=== PATIENT | male | born 1960 | race Caucasian/White ===

== ENCOUNTER → 2024-03-18 16:40 | Outpatient (REF) | payer OTHER, SELFPAY | LOC: HWRAD 16:40 | PROVIDERS: ATTENDING PHYSICIAN Physician Assistant Medical | DX: M54.6 Pain in thoracic spine (principal) | CPT/HCPCS: 71111; 72072 ==

== ENCOUNTER → 2024-05-18 09:15 | Outpatient (REF) | payer OTHER, SELFPAY ==
[2024-05-18 09:44] VITALS: BP 156/87; BP_SYST 57
[2024-05-18 09:48] LABS: % Basophils 0.2 % (0-2); % Eosinophils 2.4 % (0-6); % Immature Granulocytes 0.2 % (0-0.5); % Lymphocytes 38.1 % (20.5-51.1); % Monocytes 8.8 % (1.7-9.3); % Neutrophils 50.3 % (42.2-75.2); Absolute Eosinophils 0.1 10^3/uL (0-0.7); Absolute Lymphocytes 1.6 10^3/uL (1.2-3.4); Absolute Monocytes 0.4 10^3/uL (0.1-0.6); Absolute Neutrophils 2.1 10^3/uL (1.4-6.5); Hematocrit 38.5 % (39.0-52.0); Hemoglobin 13.1 g/dL (13.0-18.0); Mean Corpuscular Volume 93.9 fL (80.0-94.0); Mean Platelet Volume 10.2 fL (7.4-10.4); Nucleated Red Blood Cells % 0 % (-); Platelet Count 220 10^3/uL (130-400); Red Cell Dist. Width 12.5 % (11.5-14.5); White Blood Cell Count 4.2 10^3/uL (4.8-10.8)
[2024-05-18] MEDS: NSS (PRESERVATIVE FREE) 0.25 ML IV (10:11)
[2024-05-18] MEDS: ATIVAN 0.5 MG IV (10:11)
[2024-05-18 10:14] LABS: INR 1.18; PT 14.8 Sec (11.4-14.6)
[2024-05-18 10:55] VITALS: BP 145/85; BP_SYST 67
[2024-05-18 11:00] VITALS: BP 143/98; BP_SYST 62
[2024-05-18 11:05] VITALS: BP 137/90; BP_SYST 65
[2024-05-18 11:10] VITALS: BP 149/82; BP_SYST 68
== END ==
LOC: RADI 09:15
PROVIDERS: ATTENDING PHYSICIAN Internal Medicine Hematology & Oncology; FAMILY PHYSICIAN Physician Assistant Medical
DX: C90.00 Multiple myeloma not having achieved remission (principal); D69.6 Thrombocytopenia, unspecified
CPT/HCPCS: 88305; 88311; 88312; 36415; 38222; 77012; 85025; 85610; 88313

== ENCOUNTER → 2024-06-22 10:04 | Outpatient (REF) | payer OTHER, SELFPAY | LOC: HWRAD 10:04 | PROVIDERS: ATTENDING PHYSICIAN Nurse Practitioner Primary Care; FAMILY PHYSICIAN Physician Assistant Medical | DX: C90.00 Multiple myeloma not having achieved remission (principal) | CPT/HCPCS: 76536 ==

== ENCOUNTER 2024-08-15 07:38 | Inpatient (IN) | payer OTHER, SELFPAY ==
[2024-08-14 21:56] VITALS: BP 155/94
[2024-08-14 22:18] LABS: % Basophils 0.4 % (0-2); % Eosinophils 3.2 % (0-6); % Immature Granulocytes 0.4 % (0-0.5); % Lymphocytes 15.2 % (20.5-51.1); % Monocytes 11.6 % (1.7-9.3); % Neutrophils 69.2 % (42.2-75.2); Absolute Eosinophils 0.2 10^3/uL (0-0.7); Absolute Lymphocytes 1.1 10^3/uL (1.2-3.4); Absolute Monocytes 0.9 10^3/uL (0.1-0.6); Absolute Neutrophils 5.1 10^3/uL (1.4-6.5); Hematocrit 39.4 % (39.0-52.0); Hemoglobin 12.8 g/dL (13.0-18.0); Mean Corp Hgb Conc. 32.5 g/dL (33.0-37.0); Mean Corpuscular Hgb 30.3 pg (27.0-31.0); Mean Corpuscular Volume 93.4 fL (80.0-94.0); Mean Platelet Volume 10.1 fL (7.4-10.4); Nucleated Red Blood Cells % 0 % (-); Platelet Count 200 10^3/uL (130-400); Red Blood Cell Count 4.22 10^6/uL (4.70-6.10); Red Cell Dist. Width 13.2 % (11.5-14.5); White Blood Cell Count 7.4 10^3/uL (4.8-10.8)
[2024-08-14 22:42] LABS: ALT (SGPT) 29 U/L (0-50); AST (SGOT) 19 U/L (17-59); Albumin 3.8 g/dl (3.5-5.0); Alkaline Phosphatase 67 U/L (38-126); Blood Urea Nitrogen 21 mg/dl (9-20); Calcium 8.7 mg/dl (8.4-10.2); Carbon Dioxide 31 mmol/L (22-30); Chloride 100 mmol/L (98-107); Glucose 107 mg/dl (70-99); Potassium 4.8 mmol/L (3.5-5.1); Sodium 137 mmol/L (135-145); Total Bilirubin 0.5 mg/dl (0.2-1.3); eGFR > 60.00
[2024-08-14 22:45] LABS: Troponin I < 0.012 ng/ml
[2024-08-14 23:54] VITALS: BMI 34.6
[2024-08-15] VITALS (11 sets, daily range): BP systolic 115–142; BP diastolic 54–72; BMI 33.6
[2024-08-15] MEDS: ZOFRAN 4 MG IV (01:54)
[2024-08-15] MEDS: DILAUDID 0.5 MG IV (01:55)
--- NOTE | 2024-08-15 02:10 | ED.GENMED ---
History of Present Illness
General
Chief Complaint: Chest Pain
Source: patient
Exam Limitations: none
Time Seen by Provider: 08/15/24 01:15
History of Present Illness
History of Present Illness:
This is a 64 year old male that comes in with c/o left sided lateral chest pain. States that tonight he was just sitting in his chair watching TV when he started with this sharp left side chest pain. States that this started bout 9:30pm States that
he does have increased pain with deep breathing. Denies any falls or injury. states that his Oral chemotherapy medication can cause Pulmonary embolism. States that he does feel SOB. Denies any fever, chills, abd pain, nausea, vomiting,
diarrhea, headache, dizziness, urinary burning.
Past History
Past History
ED Past Medical History: Cancer (Multiple Myeloma); Negative Asthma, HTN, Hypercholesterolemia or NIDDM
ED Past Surgical History: None
Social History
Tobacco: Non-smoker
Alcohol: None
Personal:
Living: with family
Family History
Family History: Negative Early CAD
Review of Systems
Review of Systems
All Other Systems: ROS reviewed and negative except as documented in HPI and ROS
Constitutional: Reports no symptoms; Denies fever or chills
EENT: Reports no symptoms
Respiratory: Reports trouble breathing; Denies cough
Cardiac: Reports chest pain (Left lateral chest)
ABD/GI: Reports no symptoms; Denies abdominal pain, nausea, vomiting or diarrhea
: Reports no symptoms; Denies dysuria, frequency or urgency
Musculoskeletal: Reports no symptoms
Skin: Reports no symptoms
Neurological: Reports no symptoms; Denies dizzy or headache
Psychiatric: Reports no symptoms
Phy Exam
General Physical Exam
General Presentation: mild distress
General age: appears stated age
General Skin: warm and dry
General Habitus: normal
General Mental: alert
General Hydration: appears well hydrated
ENT Exam
ENT Exam: TM's normal, pharynx normal and neck supple
Eye Exam
Eye Exam: EOMI
Cardiovascular Exam
Cardiovascular Exam: regular rate/rhythm and normal peripheral pulses
Pulmonary Exam
Pulmonary Exam: lungs clear, no respiratory distress, no rales, chest non tender, no crackles, no rhonchi, no wheezing, no cough and other (NO discomfort with palpation over the left chest wall)
Gastrointestinal Exam
Gastrointestinal Exam: normal bowel sounds, non tender, soft, no organomegaly, no pulsatile mass and non distended
Musculoskeletal Exam
Musculoskeletal Exam: full ROM and no edema
Skin Exam
Skin Exam: normal color, warm/dry, no rash and no petechia
Psychiatric Exam
Psychiatric Exam: normal mood/affect
Scores
Heart Score for Chest Pain Patients
STEMI patient?: No
History: Slightly or Non-Suspicious
ECG: Normal
Age: >45 - <65 years
Risk Factors: No Risk Factors
Troponin: </= Normal Limit
Heart Score for Chest Pain Patients: 1
Heart Score Risk: 2.5% MACE over next 6 weeks
Course
Orders/Labs/Results
Orders:
Orders
08/14/24 21:55
Electrocardiogram (*1) Urgent
Reason for Study: Chest Pain
EKG- Treatment ONCE
Pulse Ox/spot Check [RESP] Urgent
Quantity: 1
Special Instructions: ON ROOM AIR
08/14/24 22:07
Complete Blood Count/With Diff Urgent
Comprehensive Metabolic Panel Urgent
Troponin I Urgent
08/15/24 01:43
CR Chest - 2 Views Urgent
Comment:
Reason For Exam: Left chest pain. SOB
08/15/24 01:50
Ondansetron Injectable [Zofran] 4 mg .ROUTE .STK-MED ONE
08/15/24 01:51
HYDROmorphone [Dilaudid] 0.5 mg .ROUTE .STK-MED ONE
08/15/24 01:54
Ondansetron Injectable [Zofran] 4 mg IV NOW STA
08/15/24 01:55
HYDROmorphone [Dilaudid] 0.5 mg IV NOW STA
08/15/24 01:58
D-Dimer Urgent
08/15/24 03:17
CT Chest Pe Study Urgent
Comment:
Reason For Exam: Left sided chest pain, Elevated D-dimer
Abnormal Lab Results
08/14/24 08/15/24
22:07 01:58
RBC 4.22 L 10^6/uL
(4.70-6.10)
Hgb 12.8 L g/dL
(13.0-18.0)
MCHC 32.5 L g/dL
(33.0-37.0)
Absolute Lymphs (auto) 1.1 L 10^3/uL
(1.2-3.4)
Absolute Monos (auto) 0.9 H 10^3/uL
(0.1-0.6)
Lymphocytes % 15.2 L %
(20.5-51.1)
Monocytes % 11.6 H %
(1.7-9.3)
D-Dimer 2.07 H ug/mlFEU
(0.00-0.50)
Carbon Dioxide 31 H mmol/L
(22-30)
BUN 21 H mg/dl
(9-20)
Glucose 107 H mg/dl
(70-99)
08/14/24 22:07
08/14/24 22:07
Hgb slightly ow. Slight Dehydration. Glucose nonfasting. Troponin <0.012
D-dimer 2.07
Vital Signs
Initial and Last Documented VS:
Initial Vital Signs
Temp Pulse Resp BP Pulse Ox
99.1 F 66 20 155/94 97
08/14/24 21:56 08/14/24 21:56 08/14/24 21:56 08/14/24 21:56 08/14/24 21:56
Last Documented Vital Signs
Temp Pulse Resp BP Pulse Ox
99.1 F 63 14 123/67 97
08/14/24 21:56 08/15/24 03:30 08/15/24 03:30 08/15/24 03:00 08/15/24 03:30
MDM/Problems Addressed
Differential Diagnosis Includes:
PE, PNA, Coronary syndrome
MDM/Problems Addressed:
This is a 64 year old male that comes in with c/o left later chest pain. States that he does have pain with deep breathing. States that the pain just came on all of a sudden and was sharp.
Will get labs, Chest x-ray ECG and medicate for pain.
Back into see patient. Explained that his D-dimer is elevated. Will get CT chest to r/o PE.
Into see patient and . Explained that he does have Bilateral pulmonary embolism. There may also be a little right heart strain. Will place patient on Heparin and admit. Hospitalist notified.
Chronic conditions affecting care: Cancer
Acute Exacerbation and/or Progression of Chronic Illness: Cancer
*Radiology
Radiology exam reviewed: radiology read reviewed (CT night hawk- Artifact limits overall assessment. Within this limiation, there are acute pulmonary emboli involving left upper lobe segmental and subsegmental branches as well as within the right
lower lobe, series 404, images 93 and 137 for example. Straightening of the IV septum which could ), all reviewed NAD by ED Provider (CT cont- could reflect a mild degree of right heart strain, can her echocardiogram. Dependent atelectasis. No
pneumothorax or pleural effusion. Focal atelectasis versus infarct involving the lingula on series 400. No aortic dissection or aneurysm. Mild cardiomegaly with coronary artery disease. ) and other (CT cont- Hepatic steatosis Age indeterminate
compression fractures of T4 and T7, new from previous CT of 2020. Consider MRI if clinically indicated. )
*Pulse Oximetry
Patient hypoxic: no
*EKG
Interpreted by ED Provider?: Yes
Heart Rate: 58
Rate: bradycardiac
Rhythm: sinus
[place]: normal axis
Interval: normal interval
QRS Pattern: normal QRS
Ischemia: no ischemia
*Control Valve Mechanic Interpretation
Rate: normal
Heart Rate: 63
Rhythm: sinus
*Critical Care Note
Total Time (30-74mins, 75-104mins- exclusive of procedures): Not Applicable
ED Attending Note
-
Portions of this chart may have been created with voice recognition software.� Occasional wrong word or��sound alike� substitutions may have occurred due to the inherent limitations of voice recognition software.
Discharge Plan
Departure
Patient Disposition: Admit
Date of Disposition: 08/15/24
Time of Disposition: 04:40
Admit to: Telemetry
Presentation/result/management discussed w/ accepting MD/DO: Hospitalist
Patient with high blood pressure during this ER visit?: No
Condition: Good
Covid-19: Not Applicable
Discharge Problem:
Bilateral pulmonary embolism
Prescriptions:
No Action
ibuprofen [Advil] 200 mg Tablet
200 mg PO Q6H PRN (Reason: pain)
guaifenesin [Mucinex] 600 mg Tablet Extended Release 12hr
1,200 mg PO Q12H
Referrals:
Colette Hernandez PA-C [Family Provider] -
Interventions
Interventions:
*Risk Screen - Suicide Last Done: 08/14/24 21:56
*General Assessment Last Done: 08/14/24 21:56
*Neglect/Abuse Screening Last Done: 08/14/24 21:56
ED- Fall Risk Assessment Last Done: 08/14/24 23:54
*ED COVID-19 Vaccine History Last Done: 08/14/24 23:54
ED- Cardiac Assessment Last Done: 08/14/24 23:54
Discharge Date and Time
Print Language: MARSHALLESE
[2024-08-15 02:26] LABS: D-Dimer 2.07 ug/mlFEU (0.00-0.50)
[2024-08-15] MEDS: HEPARIN 9800 UNITS IV ×2 (06:07→13:18)
[2024-08-15] MEDS: HEPARIN 25000 UNITS/250 ML IV ×2 (06:08→17:46)
--- NOTE | 2024-08-15 07:40 | HPS.HSE ---
Family Physician
-
Family Physician: Colette Hernandez
Chief Complaint
-
Chest pain
History of Present Illness
This is a 64-year-old male with past medical history that is notable mostly significant for a recent diagnosis of multiple myeloma for which he has been on treatment (Velcade, daratumumab and Revlimid) for the last 6 weeks presents to the emergency
department with left-sided chest pain.
Patient and family reported that for the last 1 week he has had dyspnea on exertion. A more precisely noted that the patient gets easily winded after a few steps. He did not have any chest pain at that time. He had no lower extremity swelling.
He denies any nausea vomiting or diaphoresis. Today at around 9 PM patient noted very sharp 7 out of 10 left-sided chest pain that was radiating. It was worse with inspiration. He denied any leg swelling.
On arrival in the emergency department the patient was afebrile, hemodynamically stable with a blood pressure of 114/72 with a pulse of 51. He was satting 96% on room air. ECG shows sinus bradycardia at a rate of [address] or T wave
changes. Troponin was negative. CBC was unremarkable. Chemistries were also unremarkable. D-dimer was elevated. Patient had a CT PE study showing acute pulmonary emboli involving left upper lobe segmental and subsegmental branches as well as
within the right lower lobe. There is some straightening of the IV septum which reflect mild degree of right heart strain.
Medical History
Past Medical History
Past Medical History: Reports Other
Additional Past Medical History:
Multiple Myeloma
Past Surgical History: Reports Other
Social History
Tobacco: Non-smoker
Alcohol: None
Drug: None
Personal:
Living: With Family
Family History
Family History: Not pertinent
Allergies / Home Medications
Allergies reflects when Allergies were last updated in [employer].
Home Medications with original date entered in [employer]
Allergy/Medication List:
Allergies
Allergy/AdvReac Type Severity Reaction Status Date / Time
No Known Allergies Allergy Verified 07/11/21 20:14
Home Medications
guaifenesin 600 mg tablet, extended release 12 hr (Mucinex) 1,200 mg PO Q12H 05/15/24
ibuprofen 200 mg tablet (Advil) 200 mg PO Q6H PRN pain 05/15/24
Review of Systems
-
History Source: Patient and Family
Constitutional: Reports No Symptoms
EENT: Reports No Symptoms
Respiratory: Reports Trouble Breathing
Cardiac: Reports Chest Pain
Abdomen/GI: Reports No Symptoms
: Reports No Symptoms
Musculoskeletal: Reports No Symptoms
Skin: Reports No Symptoms
Neurological: Reports No Symptoms
Endocrine: Reports No Symptoms
Hematologic/Lymphatic: Reports No Symptoms
Psych: Reports No Symptoms
Physical Exam
Vital Signs
Vital Signs
Temp Pulse Resp BP Pulse Ox
99.1 F 51 13 124/72 96
08/14/24 21:56 08/15/24 07:00 08/15/24 07:00 08/15/24 07:00 08/15/24 07:00
Physical Exam
General: Well Developed, Well Nourished, No Apparent Distress and Comfortable
HEENT: NormoCephalic, Anicteric, Moist mucous membranes and Atraumatic
Respiratory: Clear
Cardiac: S1/S2 and Bradycardia
Breast: Deferred by me
GI: Soft, Non Tender, Non Distended and Normal Bowel Sounds
Genito-urinary: Deferred by me
Musculoskeletal: No Clubbing, No Cyanosis and No Edema
Skin: Warm
Neuro: AO x 3
Hematologic/Lymphatic: No Lymphadenopathy
Psych: Calm
Laboratory Results
-
08/14/24 22:07
08/14/24 22:07
Laboratory Results
APTT 24.0 Sec (23.4-35.0) 08/15/24 04:56
Total Bilirubin 0.5 mg/dl (0.2-1.3) 08/14/24 22:07
AST 19 U/L (17-59) 08/14/24 22:07
ALT 29 U/L (0-50) 08/14/24 22:07
Alkaline Phosphatase 67 U/L (38-126) 08/14/24 22:07
Troponin I < 0.012 ng/ml 08/14/24 22:07
Data Reviewed
-
Diagnostic Radiology: Image Personally Visualized and interpreted
CT Scan: Report Reviewed by me
Medical Tests (Nuc Med, Echo, EKG etc): Image Personally Visualized and interpreted
Lab Data: Labs Reviewed by me
Old Records: Reviewed
Impression/Plan
-
IMPRESSION:
64-year-old with history of multiple biloma who is week 6 of treatment with Velcade, daratumumab and Revlimid presents to the emergency department with dyspnea on exertion and chest pain was found to have bilateral pulmonary emboli. He is
hemodynamically stable, ECG is nonischemic and troponin is negative. The CT scan shows some subtle septal bowing that could be consistent with right heart strain.
PLAN:
1. Pulmonary emboli - Likely secondary to treatment (revlimid). Was placed on aspirin as prophylaxis and eliquis was considered by his Oncologist at [facility] (Dr. Chaudhary). He is well appearing and showing no signs of massive or submassive
PE.
- admit to telemetry
- will get echo to evaluate the question of heart strain, repeat trop x 1 and check bnp
- will maintain on heparin pending the echo
- pulmonary consultation given possible strain
- oncology consultation as patient with malignancy and on treatment, advice on best AC and duration
- pain control and antiemetics
2. MM - [facility] Currently on week 6 of treatment as stated previously
- holding aspirin
- patient to bring home acylovir (bid frequency, unknown strenght)
- patient to bring revlimid to be given hs
- ppi prophlyaxis with pantoprazole, on omeprazole at home
Code status - Full Code
--- NOTE | 2024-08-15 09:47 | CON.PUL ---
Consultation
Consultation Request
Date/Time Consultation Requested: 08/15/2024903
Date/Time Consultation Performed: 08/15/2024936
Requesting Provider: Dr. Beltran
Performing Provider: Dr. Polanco
Reason for Consultation: Acute PE
Medical History
-
Chief Complaint: Chest pain
History of Present Illness:
64-year-old male non-smoker with a past medical history of multiple myeloma on treatment for the last 6 weeks who presents with chest pain. Patient's been having shortness of breath for about 1 week. On the evening prior to arrival he developed
sharp left-sided chest pain that was worse during taking a breath. In the ER he was afebrile to 99.1 �F, pulse rate 66, breathing at 20 breaths/minute, BP 155/94 and saturating 97% on room air. Labs showed Hb 12.8, D-dimer 2.07, serum bicarbonate
level 31, and troponin negative at <0.012. Chest x-ray showed no acute cardiopulmonary process, and subsequent CTA chest showed small filling defects involving the left upper lobe segmental and subsegmental branches as well as the right lower lobe
segmental branches suspicious for PE. There was some straightening of the interventricular septum suspicious for early RV strain. He was started on heparin drip in the ER and also given Dilaudid + Zofran. He was admitted to telemetry and
pulmonary service is now consulted for additional management/recommendations.
When I saw the patient he was resting in bed in no acute distress, on room air breathing comfortably. Still having some left-sided chest pain but is much better than it was on admission. He denies SOB at rest. He says that he denies any recent
plane rides or long car rides. He says that he walks daily. 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 He currently denies [place], abdominal pain, nausea, vomiting, fevers or chills.
PMHx: Anemia, multiple myeloma
PSHx: Non-contributory
Past Medical History
Past Medical History: Other (Above as per HPI)
Past Surgical History: Other (Above as per HPI)
Social History
Tobacco: Non-smoker
Alcohol: None
Drug: None
Personal:
Living: With Family
Employment: Employed (Marketing/sales)
Family History
Family History: Reviewed & Not Pertinent
Allergies / Home Medications
Allergies
Allergy/AdvReac Type Severity Reaction Status Date / Time
No Known Allergies Allergy Verified 07/11/21 20:14
Home Medications
�Medication �Instructions �Recorded �Confirmed �Last Taken �Type
guaifenesin 600 mg tablet, 1,200 mg PO Q12H 05/15/24 05/15/24 Unknown History
extended release 12 hr (Mucinex)
ibuprofen 200 mg tablet (Advil) 200 mg PO Q6H PRN pain 05/15/24 05/15/24 Unknown History
Review of Systems
-
History Source: Patient
All other systems: Negative unless noted
Vitals / Labs / Diagnostic Testing
Vital Signs
Temp Pulse Resp BP Pulse Ox
99.1 F 51 13 124/72 96
08/14/24 21:56 08/15/24 07:00 08/15/24 07:00 08/15/24 07:00 08/15/24 07:00
Lab Data
08/14/24 22:07
08/14/24 22:07
Laboratory Results
08/15/24
04:56
APTT 24.0
Diagnostic Testing:
Physical Exam
-
HEENT: Normocephalic and Anicteric
Cardiovascular: S1/S2 and Peripheral Edema (negative)
Respiratory: Wheeze (negative), Rales (negative), Rhonchi (negative) and Non-Labored Respirations
GI: Soft, Distended (Abdominal obesity), Non Tender and Normal Bowel Sounds
Neurology: AO x 3 and Tremors (negative)
Skin: Warm and Dry
General: Respiratory Distress (negative), Comfortable, Chills (negative) and Sweats (negative)
Assessment
-
Assessment: 64-year-old male non-smoker with a past medical history of multiple myeloma on treatment for the last 6 weeks who presents with chest pain. Patient's been having shortness of breath for about 1 week. On the evening prior to arrival he
developed sharp left-sided chest pain that was worse during taking a breath. In the ER he was afebrile to 99.1 �F, pulse rate 66, breathing at 20 breaths/minute, BP 155/94 and saturating 97% on room air. Labs showed Hb 12.8, D-dimer 2.07, serum
bicarbonate level 31, and troponin negative at <0.012. Chest x-ray showed no acute cardiopulmonary process, and subsequent CTA chest showed small filling defects involving the left upper lobe segmental and subsegmental branches as well as the right
lower lobe segmental branches suspicious for PE. There was some straightening of the interventricular septum suspicious for early RV strain. He was started on heparin drip in the ER and also given Dilaudid + Zofran. He was admitted to telemetry
and pulmonary service is now consulted for additional management/recommendations.
Chronic conditions MANAGER TEST: Anemia, multiple myeloma
Impression:
#Submassive bilateral PE involving JACQUELIN + RLL segmental branches with suspected RV strain
#Anemia
#Metabolic alkalosis
#Multiple myeloma on treatment
#Obesity (BMI: 33.6)
Plan:
- Suspect that this PE is provoked due to his underlying malignancy (MM)
- Systemic anticoagulation with heparin drip and can transition to NOAC using Eliquis
- Case management consult is recommended to assess cost of NOAC, preferably Eliquis
- Outpatient follow-up with Hematology/Oncology
- Check echo to assess right-sided pressures and RV size/function
- Check LE duplex to assess for DVT
- Bedrest for first 24 hrs
- Pain control
- Maintain SpO2 >90-94% with supplemental O2 as needed
- Incentive spirometer encouraged 10x per hour for at least 4 hrs a day
- Replete electrolytes with K>4, Mg>2
- Maintain euglycemia with goal BG >100 and <180
- prn nebulized bronchodilators
- DVT ppx: systemic AC
Pulmonary service will continue to follow along.
Data:
CTA chest 08/15/2024:
Although somewhat limited by artifact. Findings compatible with pulmonary embolism.
Straightening of the intraventricular septum. Cannot exclude mild right heart strain.
There is a subsegmental atelectasis. Cannot exclude developing infarct in the lingula.
Partial T4 and T7 vertebral compression fractures new in the interval since prior CT, however, age indeterminate.
Total time spent today was 57 minutes for this encounter. Time includes reviewing laboratory test/imaging results, reviewing pertinent medical records, obtaining and reviewing medical history, performing an appropriate exam, ordering medications,
tests and procedures. Time also includes documentation of this encounter, coordinating patient care and communicating with other healthcare professionals. Total time does not include separately billed tests performed on this date of service.
[2024-08-15 12:28] LABS: APTT 61.2 Sec (23.4-35.0)
--- NOTE | 2024-08-15 13:07 | CON.ONC ---
Impression
Impression
Pulmonary emboli, likely provoked by Revlimid
multiple myeloma
Plan
Plan
Agree w/ anticoagulation
Could transition from heparin to Eliquis, dosed per protocol
Continue a/c for as long as he's on revlimid or similar drugs, which increase risk for VTE
Further mgmt peof a/c per his oncologist at [facility]
Continue acyclovir for zoster ppx
Okay for d/c from heme/onc standpoint
Patient History
History of Present Illness
This is a 64 yo M w/ recent diagnosis of myeloma, being treated thru [facility] in [place], on daratumumab, velcade, revlimid and dex, started about 6 weeks ago. He noted increased fatigue around Thanskgiving, and worsening dyspnea, with chest pain yesterday.
He's been taking his ASA for VTE ppx while on Revlimid, but CT in the ER showed PE. No leg swelling, calf pain, or signs of DVT. No recent trauma, immobilization, long travel, tobacco use, testosterone use. His daughter had h/o VTE thought due to
OCPs.
He's been started on heparin ggt.
Echo pending.
Past-Medical/Surgical History
PMH - as per the HPI
SH - as per the hpi. .
FH - as per the HPI
Patient Medication
�Medication �Instructions �Recorded �Confirmed �Last Taken �Type
guaifenesin 600 mg tablet, 1,200 mg PO [id number] PRN cough 05/15/24 08/15/24 Unknown History
extended release 12 hr (Mucinex)
acyclovir 400 mg tablet 400 mg PO BID 08/15/24 08/15/24 08/15/24 History
aspirin 81 mg tablet,delayed 81 mg PO DAILY 08/15/24 08/15/24 08/14/24 History
release
dexamethasone 4 mg tablet 40 mg PO TH 08/15/24 08/15/24 Unknown History
lenalidomide 25 mg capsule 25 mg PO UD 08/15/24 08/15/24 08/15/24 History
(Revlimid)
omeprazole 20 mg capsule,delayed 20 mg PO DAILY 08/15/24 08/15/24 08/15/24 History
release
therapeutic multivitamin 1 tab PO DAILY 08/15/24 08/15/24 Unknown History
Active Medications
Generic Name Dose Route Start Last Admin
Trade Name Freq PRN Reason Stop Dose Admin
Acetaminophen 650 mg 08/15/24 12:57
Acetaminophen 325 Mg Tablet PO 09/12/24 12:56
Q6HPRN PRN
mild pain/ fever>100.5F
Docusate Sodium 100 mg 08/15/24 12:57
Docusate Sodium 100 Mg Capsule PO 09/12/24 12:56
BID TANIKA
Heparin Sodium 9,800 units 08/15/24 05:11
Heparin 80 Units/Kg Rebolus-Do Not Discard IV 09/12/24 05:10
PRN PRN
PTT < OR = 64 seconds
Heparin Sodium 4,900 units 08/15/24 05:11
Heparin 40 Units/Kg Rebolus-Do Not Discard IV 09/12/24 05:10
PRN PRN
PTT = 64.1 to 72.9 seconds
Hydromorphone HCl 0.5 mg 08/15/24 12:57
Hydromorphone 0.5 Mg/0.5 Ml Syringe IV 08/29/24 12:56
Q4HPRN PRN
severe pain
Heparin Sodium 25,000 units in 250 mls @ 0 mls/hr 08/15/24 04:45 08/15/24 06:08
Heparin 57865 Units/250 Ml IV 250 mls
PER PROTOCOL TANIKA Administration
Protocol
Per Protocol
Ondansetron HCl 4 mg 08/15/24 12:57
Ondansetron 4 Mg/2 Ml Vial IV 09/12/24 12:56
Q6HPRN PRN
NAUSEA/VOMITING
Oxycodone HCl 5 mg 08/15/24 12:57
Oxycodone 5 Mg Regular Release Tablet PO 08/29/24 12:56
Q4HPRN PRN
moderate pain
Pantoprazole Sodium 40 mg 08/15/24 13:15
Pantoprazole Sodium 40 Mg/10 Ml Vial IV 09/12/24 13:14
DAILY TANIKA
Sodium Chloride 0 flush 08/15/24 06:00
Sodium Chloride 0.9% (Flush) Syringe IV 09/12/24 05:59
PER PROTOCOL TANIKA
Review of Systems
-
All Other Systems: Not reviewed unless documented
Physical Exam
-
General: Well Developed, Well Nourished, No Apparent Distress, Comfortable and Conversant
HEENT: Negative Jaundice
Cardiology: Normal Sinus Rhythm
Musculoskeletal: No Clubbing, No Cyanosis and No Edema
Extremities: Pulses Present and No C/C/E
Psych: Calm and Intact Judgement/Insight
Labs
Lab Results
WBC 7.4 10^3/uL (4.8-10.8) 08/14/24 22:07
RBC 4.22 10^6/uL (4.70-6.10) L 08/14/24 22:07
Hgb 12.8 g/dL (13.0-18.0) L 08/14/24 22:07
Hct 39.4 % (39.0-52.0) 08/14/24 22:07
MCV 93.4 fL (80.0-94.0) 08/14/24 22:07
MCH 30.3 pg (27.0-31.0) 08/14/24 22:07
MCHC 32.5 g/dL (33.0-37.0) L 08/14/24 22:07
RDW 13.2 % (11.5-14.5) 08/14/24 22:07
Plt Count 200 10^3/uL (130-400) 08/14/24 22:07
MPV 10.1 fL (7.4-10.4) 08/14/24 22:07
Abs Immat Gran (auto) 0.0 10^3/uL (0-0.05) 08/14/24 22:07
Absolute Neuts (auto) 5.1 10^3/uL (1.4-6.5) 08/14/24 22:07
Absolute Lymphs (auto) 1.1 10^3/uL (1.2-3.4) L 08/14/24 22:07
Absolute Monos (auto) 0.9 10^3/uL (0.1-0.6) H 08/14/24 22:07
Absolute Eos (auto) 0.2 10^3/uL (0-0.7) 08/14/24 22:07
Absolute Basos (auto) 0.0 10^3/uL (0-0.2) 08/14/24 22:07
Immature Gran % 0.4 % (0-0.5) 08/14/24 22:07
Neutrophils % 69.2 % (42.2-75.2) 08/14/24 22:07
Lymphocytes % 15.2 % (20.5-51.1) L 08/14/24 22:07
Monocytes % 11.6 % (1.7-9.3) H 08/14/24 22:07
Eosinophils % 3.2 % (0-6) 08/14/24 22:07
Basophils % 0.4 % (0-2) 08/14/24 22:07
Creatinine 0.8 mg/dL (0.7-1.3) 08/14/24 22:07
Vital Signs
Vital Signs
Temp Pulse Resp BP Pulse Ox
99.1 F 51 13 124/72 96
08/14/24 21:56 08/15/24 07:00 08/15/24 07:00 08/15/24 07:00 08/15/24 07:00
--- NOTE | 2024-08-15 13:50 | W.PN.HOSP.TC ---
Today's Communication/Plan
-
Transition to Eliquis tonight
Pulm/Onc consulted
ECHO
F/u Trop, BNP
Assessment / Plan
Assessment / Plan
Physical Exam
General: Well Developed, Well Nourished, No Apparent Distress and Comfortable
HEENT: NormoCephalic, Anicteric, Moist mucous membranes and Atraumatic
Respiratory: Clear
Cardiac: S1/S2 and Bradycardia
Breast: Deferred by me
GI: Soft, Non Tender, Non Distended and Normal Bowel Sounds
Genito-urinary: Deferred by me
Musculoskeletal: No Clubbing, No Cyanosis and No Edema
Skin: Warm
Neuro: AO x 3
Hematologic/Lymphatic: No Lymphadenopathy
Psych: Calm
64-year-old with history of multiple biloma who is week 6 of treatment with Velcade, daratumumab and Revlimid presents to the emergency department with dyspnea on exertion and chest pain was found to have bilateral pulmonary emboli. He is
hemodynamically stable, ECG is nonischemic and troponin is negative. The CT scan shows some subtle septal bowing that could be consistent with right heart strain.
PLAN:
1. Pulmonary emboli - Likely secondary to treatment (revlimid). Was placed on aspirin as prophylaxis and eliquis was considered by his Oncologist at [facility] (Dr. Chaudhary). He is well appearing and showing no signs of massive or submassive
PE.
- admit to telemetry
- will get echo to evaluate the question of heart strain, repeat trop x 1 and check bnp
- Hep ggt - Can transition to Eliquis tonight
- Onc/Pulm consulted
- pain control and antiemetics
- Continue a/c for as long as he's on revlimid or similar drugs, which increase risk for VTE
-Further mgmt f a/c per his oncologist at [facility] [place]
2. MM - Follow with Dr. Chaudhary at [facility]. Currently on week 6 of treatment as stated previously
- holding aspirin
- patient to bring home acylovir (bid frequency, unknown strenght)
- patient to bring revlimid to be given hs
- ppi prophlyaxis with pantoprazole, on omeprazole at home
Code status - Full Code
Anticipated Discharge: 24 - 48 hours
Subjective/Interval History
-
Date of Service: August 15, 2024
mild pleuritic chest pain
Objective Data
-
Labs:
Laboratory Results
08/15/24 08/15/24 08/15/24
04:56 12:04 19:25
APTT 24.0 61.2 H Pending
Vital Signs:
Vital Signs
Temp Pulse Resp BP Pulse Ox
98.5 F 55 18 142/65 96
08/15/24 13:06 08/15/24 13:06 08/15/24 13:06 08/15/24 13:06 08/15/24 13:06
Review of Systems
-
History Source: Patient
All other systems: Not reviewed unless documented
Data Reviewed
-
CT Scan: Report Reviewed by me
Labs: Labs Reviewed by me
[2024-08-15] MEDS: NSS (PRESERVATIVE FREE) 10 ML IV (14:00)
[2024-08-15] MEDS: COLACE 100 MG PO ×2 (14:00→20:05)
[2024-08-15] MEDS: PROTONIX IV 40 MG IV (14:00)
[2024-08-15 14:06] LABS: NT-proBNP 92.8 pg/ml; Troponin I < 0.012 ng/ml
--- NOTE | 2024-08-15 15:43 | CM ---
Met with patient and in room. Patient admitted with PE. HE lives with in 2 level home with no steps to enter. There is half bath on first floor. UP full flight to full bathroom and bedroom. He has no DME. He has not had any home care
or snf or rehab inpatient stays.
PCP Colette Carreno
Pharmacy: [facility]
Check smith of Eliquis PE protocol in [employer] system. Came up $0.00 to patient cost. Spoke to and she said that their dgtr was on eliquis under their plan when she was 23 and it was a reasonable cost.
CM to see if there are any coupons for Eliquis for patient.
PLAN: home no needs.
[2024-08-15] MEDS: ZOVIRAX 400 MG PO (20:06)
[2024-08-15] MEDS: NON-FORMULARY ITEM 1 MG PO (20:06)
[2024-08-15] MEDS: ELIQUIS 10 MG PO (20:06)
[2024-08-16 03:52] VITALS: BP 133/67
[2024-08-16 06:57] LABS: Hematocrit 34.9 % (39.0-52.0); Hemoglobin 11.6 g/dL (13.0-18.0); Mean Corp Hgb Conc. 33.2 g/dL (33.0-37.0); Mean Corpuscular Hgb 31.5 pg (27.0-31.0); Mean Corpuscular Volume 94.8 fL (80.0-94.0); Platelet Count 179 10^3/uL (130-400); Red Blood Cell Count 3.68 10^6/uL (4.70-6.10); Red Cell Dist. Width 13.2 % (11.5-14.5); White Blood Cell Count 7.6 10^3/uL (4.8-10.8)
[2024-08-16 07:36] LABS: ALT (SGPT) 24 U/L (0-50); AST (SGOT) 15 U/L (17-59); Albumin 3.1 g/dl (3.5-5.0); Alkaline Phosphatase 63 U/L (38-126); Blood Urea Nitrogen 17 mg/dl (9-20); Calcium 8.5 mg/dl (8.4-10.2); Carbon Dioxide 29 mmol/L (22-30); Chloride 103 mmol/L (98-107); Estimated Creatinine Clearance > 125 ml/min; Glucose 100 mg/dl (70-99); Potassium 4.2 mmol/L (3.5-5.1); Sodium 136 mmol/L (135-145); Total Bilirubin 0.3 mg/dl (0.2-1.3); Total Protein 6.1 g/dl (6.3-8.2); eGFR > 60.00
[2024-08-16 08:08] VITALS: BP 107/66
[2024-08-16] MEDS: ELIQUIS 10 MG PO ×2 (08:32→21:17)
[2024-08-16] MEDS: ZOVIRAX 400 MG PO ×2 (08:32→21:16)
[2024-08-16] MEDS: PROTONIX IV 40 MG IV (08:32)
[2024-08-16] MEDS: THERAGRAN 1 TABLET PO (08:32)
[2024-08-16] MEDS: NSS (PRESERVATIVE FREE) 10 ML IV (08:33)
[2024-08-16] MEDS: COLACE PO ×2 (08:33→21:08)
--- NOTE | 2024-08-16 09:08 | W.PN.PUL3 ---
Today's Communication / Plan
-
Systemic anticoagulation with Eliquis
Case management consult to assure Eliquis is affordable
Outpatient hematology/oncology follow-up
Check echo
Continue with outpatient Decadron + acyclovir and Revlimid
Up OOB as tolerated after 24-hour bedrest
Maintain SpO2 >90-94%
Pulmonary service will continue to briefly follow along
Assessment
-
Assessment: 64-year-old male non-smoker with a past medical history of multiple myeloma on treatment for the last 6 weeks who presents with chest pain. Patient's been having shortness of breath for about 1 week. On the evening prior to arrival he
developed sharp left-sided chest pain that was worse during taking a breath. In the ER he was afebrile to 99.1 �F, pulse rate 66, breathing at 20 breaths/minute, BP 155/94 and saturating 97% on room air. Labs showed Hb 12.8, D-dimer 2.07, serum
bicarbonate level 31, and troponin negative at <0.012. Chest x-ray showed no acute cardiopulmonary process, and subsequent CTA chest showed small filling defects involving the left upper lobe segmental and subsegmental branches as well as the right
lower lobe segmental branches suspicious for PE. There was some straightening of the interventricular septum suspicious for early RV strain. He was started on heparin drip in the ER and also given Dilaudid + Zofran. He was admitted to telemetry
and pulmonary service is now consulted for additional management/recommendations.
Chronic conditions ACADEMIC AFFAIRS COORDINATOR: Anemia, multiple myeloma
Impression:
#Submassive bilateral PE involving JACQUELIN + RLL segmental branches with suspected RV strain
#Anemia
#Metabolic alkalosis
#Multiple myeloma on active chemotherapy
#Obesity (BMI: 33.6)
Plan:
- Suspect that this PE is provoked due to his underlying malignancy (MM)
- Systemic anticoagulation with NOAC using Eliquis
- Case management consult is recommended to assess cost of NOAC, preferably Eliquis
- Outpatient follow-up with Hematology/Oncology
- Check echo to assess right-sided pressures and RV size/function
- LE duplex negative for DVT in either leg
- Bedrest for first 24 hrs --> then pt can get up OOB
- Pain control
- Maintain SpO2 >90-94% with supplemental O2 as needed
- Incentive spirometer encouraged 10x per hour for at least 4 hrs a day
- Replete electrolytes with K>4, Mg>2
- Maintain euglycemia with goal BG >100 and <180
- prn nebulized bronchodilators
- DVT ppx: Eliquis
Pulmonary service will continue to follow along.
Data:
CTA chest 08/15/2024:
Although somewhat limited by artifact. Findings compatible with pulmonary embolism.
Straightening of the intraventricular septum. Cannot exclude mild right heart strain.
There is a subsegmental atelectasis. Cannot exclude developing infarct in the lingula.
Partial T4 and T7 vertebral compression fractures new in the interval since prior CT, however, age indeterminate.
Bilateral lower extremity venous duplex 08/16/2024: No sonographic evidence for lower extremity venous thrombosis.
Total time spent today was 36 minutes for this encounter. Time includes reviewing laboratory test/imaging results, reviewing pertinent medical records, obtaining and reviewing medical history, performing an appropriate exam, ordering medications,
tests and procedures. Time also includes documentation of this encounter, coordinating patient care and communicating with other healthcare professionals. Total time does not include separately billed tests performed on this date of service.
Subjective Data
-
Date of Service:
Date of Service: August 16, 2024
Chief Complaint: Pulmonary Follow Up
Subjective:
Patient seen and evaluated today at bedside. No acute events reported overnight. Remains on room air saturating 97%. Denies [place], abdominal pain, nausea, fevers or chills.
Review of Systems
General: Other (Negative unless mentioned above)
Objective Data
Data Reviewed
Vital Signs / I&O / Oxygen:
Vital Signs
Temp Pulse Resp BP Pulse Ox
98.5 F 63 18 107/66 98
08/16/24 08:08 08/16/24 08:08 08/16/24 08:08 08/16/24 08:08 08/16/24 08:08
Intake and Output
08/15/24 08/16/24 08/17/24
06:59 06:59 06:59
Intake Total 480 / 480
Balance 480 / 480
SaO2 98
Physical Exam
General: Respiratory Distress (negative), Comfortable, Chills (negative) and Sweats (negative)
HEENT: Normocephalic and Anicteric
Cardiovascular: S1-S2, Rub (negative) and Peripheral Edema (negative)
Respiratory: Wheeze (negative), Crackles (negative), Rhonchi (negative) and Stridor (negative)
GI: Soft, Non Distended, Non Tender and Normal Bowel Sounds
Neurology: AO x 3 and Tremors (negative)
Skin: Warm, Dry, Cyanosis (negative) and Jaundice (negative)
Labs/Micro/Reports
Lab Data
08/16/24 05:59
08/16/24 05:59
Laboratory Results
08/15/24 08/15/24
12: 19:25
APTT 61.2 H Cancelled
[2024-08-16 13:05] VITALS: BP 129/75
--- NOTE | 2024-08-16 13:07 | W.PN.HOSP.TC ---
Today's Communication/Plan
-
LE dopplers
ECHO
Eliquis
Assessment / Plan
Assessment / Plan
Physical Exam
General: Well Developed, Well Nourished, No Apparent Distress and Comfortable
HEENT: NormoCephalic, Anicteric, Moist mucous membranes and Atraumatic
Respiratory: Clear
Cardiac: S1/S2 and Bradycardia
Breast: Deferred by me
GI: Soft, Non Tender, Non Distended and Normal Bowel Sounds
Genito-urinary: Deferred by me
Musculoskeletal: No Clubbing, No Cyanosis and No Edema
Skin: Warm
Neuro: AO x 3
Hematologic/Lymphatic: No Lymphadenopathy
Psych: Calm
64-year-old with history of multiple biloma who is week 6 of treatment with Velcade, daratumumab and Revlimid presents to the emergency department with dyspnea on exertion and chest pain was found to have bilateral pulmonary emboli. He is
hemodynamically stable, ECG is nonischemic and troponin is negative. The CT scan shows some subtle septal bowing that could be consistent with right heart strain.
PLAN:
1. Pulmonary emboli - Likely secondary to treatment (revlimid). Was placed on aspirin as prophylaxis and eliquis was considered by his Oncologist at [facility] (Dr. Chaudhary). He is well appearing and showing no signs of massive or submassive
PE.
- admit to telemetry
- will get echo to evaluate the question of heart strain, repeat trop x 1 and check bnp
- Hep ggt - switched to Eliquis - cost is ok
- Onc/Pulm consulted
-LE dopplers
- pain control and antiemetics
- Continue a/c for as long as he's on revlimid or similar drugs, which increase risk for VTE
-Further mgmt f a/c per his oncologist at [facility] [place]
2. MM - Follow with Dr. Chaudhary at [facility]. Currently on week 6 of treatment as stated previously
- holding aspirin
- patient to bring home acylovir (bid frequency, unknown strenght)
- patient to bring revlimid to be given hs
- ppi prophlyaxis with pantoprazole, on omeprazole at home
Code status - Full Code
Anticipated Discharge: Within 24 hours
Subjective/Interval History
-
Date of Service: August 16, 2024
No acute events
Objective Data
-
Labs:
Laboratory Results
08/16/24
05:59
WBC 7.6
Hgb 11.6 L
Hct 34.9 L
Plt Count 179
Sodium 136
Potassium 4.2
Chloride 103
Carbon Dioxide 29
BUN 17
Creatinine 0.7
Glucose 100 H
Calcium 8.5
Total Bilirubin 0.3
AST 15 L
ALT 24
Alkaline Phosphatase 63
Vital Signs:
Vital Signs
Temp Pulse Resp BP Pulse Ox
98.3 F 61 18 129/75 98
08/16/24 13:05 08/16/24 13:05 08/16/24 13:05 08/16/24 13:05 08/16/24 13:05
I&O
08/15/24 08/16/24 08/17/24
06:59 06:59 06:59
Intake Total 480 / 480
Balance 480 / 480
Review of Systems
-
History Source: Patient
All other systems: Not reviewed unless documented
Data Reviewed
-
CT Scan: Report Reviewed by me
Labs: Labs Reviewed by me
[2024-08-16 16:13] VITALS: BP 121/65
[2024-08-16] MEDS: NON-FORMULARY ITEM 25 MG PO (21:16)
[2024-08-16 23:18] VITALS: BP 143/69
[2024-08-17 03:42] VITALS: BP 137/74
[2024-08-17 07:05] VITALS: BP 153/68
[2024-08-17 07:32] LABS: Hematocrit 37.9 % (39.0-52.0); Hemoglobin 12.2 g/dL (13.0-18.0); Mean Corp Hgb Conc. 32.2 g/dL (33.0-37.0); Mean Corpuscular Hgb 30.7 pg (27.0-31.0); Mean Corpuscular Volume 95.2 fL (80.0-94.0); Mean Platelet Volume 10.6 fL (7.4-10.4); Platelet Count 193 10^3/uL (130-400); Red Blood Cell Count 3.98 10^6/uL (4.70-6.10); Red Cell Dist. Width 13.2 % (11.5-14.5); White Blood Cell Count 8.2 10^3/uL (4.8-10.8)
--- NOTE | 2024-08-17 07:42 | PTCARENOTE ---
Pt continued to monitor overnight. Pt aaox3 able to make his needs known.Pt denies of any other complaints. Pt took his eliquis overnight. No complaints noted, pt was continued to monitor overnight.Plan of care continued.
[2024-08-17 08:06] LABS: ALT (SGPT) 22 U/L (0-50); AST (SGOT) 14 U/L (17-59); Albumin 3.4 g/dl (3.5-5.0); Alkaline Phosphatase 67 U/L (38-126); Blood Urea Nitrogen 18 mg/dl (9-20); Calcium 8.8 mg/dl (8.4-10.2); Carbon Dioxide 29 mmol/L (22-30); Chloride 101 mmol/L (98-107); Estimated Creatinine Clearance > 125 ml/min; Glucose 100 mg/dl (70-99); Potassium 4.4 mmol/L (3.5-5.1); Sodium 137 mmol/L (135-145); Total Bilirubin 0.3 mg/dl (0.2-1.3); Total Protein 6.4 g/dl (6.3-8.2); eGFR > 60.00
--- NOTE | 2024-08-17 08:46 | W.PN.HOSP.TC ---
Today's Communication/Plan
-
Discharge
Assessment / Plan
Assessment / Plan
Physical Exam
General: Well Developed, Well Nourished, No Apparent Distress and Comfortable
HEENT: NormoCephalic, Anicteric, Moist mucous membranes and Atraumatic
Respiratory: Clear
Cardiac: S1/S2 and Bradycardia
Breast: Deferred by me
GI: Soft, Non Tender, Non Distended and Normal Bowel Sounds
Genito-urinary: Deferred by me
Musculoskeletal: No Clubbing, No Cyanosis and No Edema
Skin: Warm
Neuro: AO x 3
Hematologic/Lymphatic: No Lymphadenopathy
Psych: Calm
64-year-old with history of multiple biloma who is week 6 of treatment with Velcade, daratumumab and Revlimid presents to the emergency department with dyspnea on exertion and chest pain was found to have bilateral pulmonary emboli. He is
hemodynamically stable, ECG is nonischemic and troponin is negative. The CT scan shows some subtle septal bowing that could be consistent with right heart strain.
PLAN:
1. Pulmonary emboli - Likely secondary to treatment (revlimid). Was placed on aspirin as prophylaxis and eliquis was considered by his Oncologist at [facility] (Dr. Chaudhary). He is well appearing and showing no signs of massive or submassive
PE.
- admit to telemetry
-No indication for echocardiogram given normal troponin and BNP. Hemodynamically stable. Can always be done as an outpatient.
- Hep ggt - switched to Eliquis - cost is ok
- Onc/Pulm consulted
-LE dopplers negative.
- pain control and antiemetics
- Continue a/c for as long as he's on revlimid or similar drugs, which increase risk for VTE
-Further mgmt f a/c per [place]ologist [place] [facility]
2. MM - Follow with Dr. Chaudhary at [facility]. Currently on week 6 of treatment as stated previously
- holding aspirin
- patient to bring home acylovir (bid frequency, unknown strenght)
- patient to bring revlimid to be given hs
- ppi prophlyaxis with pantoprazole, on omeprazole at home
Obesity due to excess calories
Code status - Full Code
Dispo -medically stable for discharge today. Outpatient follow-up.
35 minutes spent in discharge process.
Anticipated Discharge: Today
Subjective/Interval History
-
Date of Service: August 17, 2024
Patient seen and examined. No complaints.
Objective Data
-
Labs:
Laboratory Results
08/17/24
06:39
WBC 8.2
Hgb 12.2 L
Hct 37.9 L
Plt Count 193
Sodium 137
Potassium 4.4
Chloride 101
Carbon Dioxide 29
BUN 18
Creatinine 0.7
Glucose 100 H
Calcium 8.8
Total Bilirubin 0.3
AST 14 L
ALT 22
Alkaline Phosphatase 67
Vital Signs:
Vital Signs
Temp Pulse Resp BP Pulse Ox
98.5 F 60 20 153/68 97
08/17/24 07:05 08/17/24 07:05 08/17/24 07:05 08/17/24 07:05 08/17/24 07:05
I&O
08/16/24 08/17/24 08/18/24
06:59 06:59 06:59
Intake Total 480 / 480 480 / 480
Balance 480 / 480 480 / 480
Review of Systems
-
History Source: Patient
All other systems: Reviewed and negative
--- NOTE | 2024-08-17 08:52 | W.DS.TRANS ---
DC Summary - Elevator Tender
-
Discharge Instructions:
Discharge Diagnosis/Procedures Acute pulmonary emboli
Diet Regular
Activity As tolerated
Driving Restrictions As prior to admission
Bathing Restrictions None
Instructions:
Stand-Alone Forms:
Changes to Home Medications: Yes
Discharge Medications:
DC Medications w/original date entered in [employer]
guaifenesin 600 mg tablet, extended release 12 hr (Mucinex) 1,200 mg PO [id number] PRN cough 05/15/24
acyclovir 400 mg tablet 400 mg PO BID 08/15/24
dexamethasone 4 mg tablet 40 mg PO TH 08/15/24
lenalidomide 25 mg capsule (Revlimid) 25 mg PO HS 08/15/24
omeprazole 20 mg capsule,delayed release 20 mg PO DAILY 08/15/24
therapeutic multivitamin 1 tab PO DAILY 08/15/24
apixaban 5 mg tablet (Eliquis) 5 mg PO BID #70 tabs 08/17/24
Home Medication Changes
Stop aspirin
Pending Results: No
[2024-08-17] MEDS: PROTONIX IV 40 MG IV (09:06)
[2024-08-17] MEDS: ZOVIRAX 400 MG PO (09:07)
[2024-08-17] MEDS: THERAGRAN 1 TABLET PO (09:07)
[2024-08-17] MEDS: ELIQUIS 10 MG PO (09:07)
[2024-08-17] MEDS: COLACE PO (09:07)
[2024-08-17] MEDS: NSS (PRESERVATIVE FREE) 10 ML IV (09:07)
--- NOTE | 2024-08-17 09:55 | CM ---
MD entered order for discharge.
Spoke with pt he said he was ready for discharge today.
His Dorothy will be driving him home.
Offered VN he declined need.
PLAN Home no needs
== END 2024-08-17 10:48 | disposition home or self-care (01) | DRG 176 ==
LOC: 4 EAST ACU 07:38
PROVIDERS: Clinical Nurse Specialist Family Health; Internal Medicine; Registered Nurse; ADMITTING PHYSICIAN Internal Medicine; ATTENDING PHYSICIAN Hospitalist; CONSULT PHYSICIAN Internal Medicine Critical Care Medicine; CONSULT PHYSICIAN Internal Medicine Hematology & Oncology; EMERGENCY PHYSICIAN Emergency Medicine; FAMILY PHYSICIAN Physician Assistant Medical
DX: I26.99 Other pulmonary embolism without acute cor pulmonale (principal); C90.00 Multiple myeloma not having achieved remission; E87.3 Alkalosis; T45.1X5A Adverse effect of antineoplastic and immunosuppressive drugs, initial encounter; D63.0 Anemia in neoplastic disease; E66.09 Other obesity due to excess calories; Z68.34 Body mass index [BMI] 34.0-34.9, adult
CPT/HCPCS: 71046; 71275; 80053; 83880; 84484; 85025; 85027; 85379; 85730; 93005; 93970; 96365; 96366; 96375; 99285; Q9967

== ENCOUNTER 2024-09-07 13:42 | Emergency (ER) | payer OTHER, SELFPAY ==
[2024-09-07 13:50] VITALS: BP 129/75
[2024-09-07 14:14] LABS: % Basophils 1.1 % (0-2); % Eosinophils 9.5 % (0-6); % Immature Granulocytes 0.4 % (0-0.5); % Lymphocytes 12.5 % (20.5-51.1); % Monocytes 18.9 % (1.7-9.3); % Neutrophils 57.6 % (42.2-75.2); Absolute Basophils 0.1 10^3/uL (0-0.2); Absolute Eosinophils 1.1 10^3/uL (0-0.7); Absolute Lymphocytes 1.4 10^3/uL (1.2-3.4); Absolute Monocytes 2.1 10^3/uL (0.1-0.6); Absolute Neutrophils 6.4 10^3/uL (1.4-6.5); Hematocrit 36.5 % (39.0-52.0); Hemoglobin 12.1 g/dL (13.0-18.0); Mean Corp Hgb Conc. 33.2 g/dL (33.0-37.0); Mean Corpuscular Hgb 29.6 pg (27.0-31.0); Mean Corpuscular Volume 89.2 fL (80.0-94.0); Mean Platelet Volume 8.9 fL (7.4-10.4); Nucleated Red Blood Cells % 0 % (-); Platelet Count 380 10^3/uL (130-400); Red Blood Cell Count 4.09 10^6/uL (4.70-6.10); Red Cell Dist. Width 13.2 % (11.5-14.5)
[2024-09-07 14:31] LABS: ALT (SGPT) 32 U/L (0-50); AST (SGOT) 18 U/L (17-59); Albumin 3.2 g/dl (3.5-5.0); Alkaline Phosphatase 113 U/L (38-126); Blood Urea Nitrogen 13 mg/dl (9-20); Calcium 8.2 mg/dl (8.4-10.2); Carbon Dioxide 25 mmol/L (22-30); Chloride 101 mmol/L (98-107); Glucose 112 mg/dl (70-99); Potassium 4.2 mmol/L (3.5-5.1); Sodium 131 mmol/L (135-145); Total Bilirubin 0.7 mg/dl (0.2-1.3); Total Protein 6.2 g/dl (6.3-8.2); eGFR > 60.00
[2024-09-07 14:42] LABS: Troponin I < 0.012 ng/ml
--- NOTE | 2024-09-07 17:07 | ED.GENMED ---
History of Present Illness
General
Chief Complaint: Breathing Problem
Time Seen by Provider: 09/07/24 17:05
History of Present Illness
History of Present Illness:
64-year-old male presents to the emergency department for evaluation of progressively worsening left-sided pleuritic chest pain and dyspnea on exertion that is been worsening for the past 10 days. Reports a mild dry cough but denies any associated
fever or mucus production. Currently undergoing chemotherapy for multiple myeloma. Was admitted to this hospital earlier in August for acute bilateral pulmonary embolisms and was discharged on Eliquis. He has been compliant with his Eliquis
last dose was this morning. Denies any leg swelling or calf pain
Past History
Past History
ED Past Medical History: Cancer (Multiple Myeloma); Negative Asthma, HTN, Hypercholesterolemia or NIDDM
ED Past Surgical History: None
Social History
Tobacco: Non-smoker
Alcohol: None
Personal:
Living: with family
Family History
Family History: Negative Early CAD
Review of Systems
Review of Systems
Allergies reviewed?: Yes
All Other Systems: ROS reviewed and negative except as documented in HPI and ROS
Phy Exam
Physical Exam
Physical Exam:
GEN: Well appearing, NAD, WDWN
HEENT: Oral mucosa moist, no scleral icterus
Cardiac: Regular rate and rhythm, no murmurs
Lung: No respiratory distress, no tachypnea, diminished left-sided breath sounds
MSK: No gross deformity or injuries
Skin: Good color, no pallor or jaundice, no rashes
Neuro: AO x3, moves all extremities freely
Psych: Calm, cooperative
Scores
Heart Failure Risk
Heart Failure Risk Score: Not Applicable
Course
Orders/Labs/Results
Orders:
Orders
09/07/24 13:52
Electrocardiogram (*1) Urgent
Reason for Study: Shortness of Breath
EKG- Treatment ONCE
Chest [CR Chest - 2 Views ] Urgent
Comment:
Reason For Exam: shortness of breath, cough
09/07/24 14:07
Complete Blood Count/With Diff Urgent
Comprehensive Metabolic Panel Urgent
NT-proBNP Urgent
Comment: ADD ON
Troponin I Urgent
09/07/24 18:14
Add On- LAB Urgent
Tests Added?: BNP
Abnormal Lab Results
09/07/24
14:07
WBC 11.0 H 10^3/uL
(4.8-10.8)
RBC 4.09 L 10^6/uL
(4.70-6.10)
Hgb 12.1 L g/dL
(13.0-18.0)
Hct 36.5 L %
(39.0-52.0)
Absolute Monos (auto) 2.1 H 10^3/uL
(0.1-0.6)
Absolute Eos (auto) 1.1 H 10^3/uL
(0-0.7)
Lymphocytes % 12.5 L %
(20.5-51.1)
Monocytes % 18.9 H %
(1.7-9.3)
Eosinophils % 9.5 H %
(0-6)
Sodium 131 L mmol/L
(135-145)
Glucose 112 H mg/dl
(70-99)
Calcium 8.2 L mg/dl
(8.4-10.2)
Total Protein 6.2 L g/dl
(6.3-8.2)
Albumin 3.2 L g/dl
(3.5-5.0)
09/07/24 14:07
09/07/24 14:07
Vital Signs
Initial and Last Documented VS:
Initial Vital Signs
Temp Pulse Resp BP Pulse Ox
98.2 F 78 20 129/75 97
09/07/24 13:50 09/07/24 13:50 09/07/24 13:50 09/07/24 13:50 09/07/24 13:50
Last Documented Vital Signs
Temp Pulse Resp BP Pulse Ox
98.2 F 68 20 175/84 95
09/07/24 13:50 09/07/24 19:00 09/07/24 19:00 09/07/24 19:00 09/07/24 19:00
MDM/Problems Addressed
MDM/Problems Addressed:
Patient's symptoms are most likely due to new onset left pleural effusion. This is most likely acute in the setting of either his cancer or pulmonary embolisms. Doubt pneumonia clinically as he has no fevers and no associated infiltrate. Cardiac
markers are reassuring against CHF. Did offer the patient admission however he declined due to concerns for hospital-acquired infections, this is not unreasonable as he is clinically stable. I have written orders for outpatient thoracentesis as
well as diagnostic labs. Outpatient cardiology follow-up advised given patient's persistent hypertension to rule out ischemic etiology to his chest pain although again is most likely due to the left pleural effusion
*Critical Care Note
Total Time (30-74mins, 75-104mins- exclusive of procedures): Not Applicable
ED Attending Note
-
Portions of this chart may have been created with voice recognition software.� Occasional wrong word or��sound alike� substitutions may have occurred due to the inherent limitations of voice recognition software.
Discharge Plan
Departure
Patient Disposition: Home (Routine Discharge)
Date of Disposition: 09/07/24
Time of Disposition: 19:00
Patient with high blood pressure during this ER visit?: No
Discharge Problem:
Pleural effusion
Instructions: Pleural effusion, Chest Pain DCA Follow Up
Prescriptions:
No Action
guaifenesin [Mucinex] 600 mg Tablet Extended Release 12hr
1,200 mg PO [id number] PRN (Reason: cough)
acyclovir 400 mg Tablet
400 mg PO BID
omeprazole 20 mg Capsule,Delayed Release(Dr/Ec)
20 mg PO DAILY
lenalidomide [Revlimid] 25 mg Capsule
25 mg PO HS
Rx Instructions:
on for 21 days then off for 7 days, 08/15 day 9
therapeutic multivitamin Tablet
1 tab PO DAILY
dexamethasone 4 mg Tablet
40 mg PO TH
Rx Instructions:
take when getting treatment
Eliquis 5 mg tablet
5 mg PO BID Qty: 70 0RF
Rx Instructions:
2 tabs (10mg) twice daily x 10 doses then 1 tab (5mg) twice daily.
Referrals:
Yeni De Leon DO [Family Provider] -
Activity Restrictions/Additional Instructions:
Call [phone] to schedule your thoracentesis (lung drainage)
The lab results from this procedure should be available within 24 hours; please review them on your portal and discuss with your oncologist
The cardiology office should be contacting you in 24-48 hours to schedule you for an appointment. Please discuss the need for an echocardiogram at that time
Interventions
Interventions:
*Risk Screen - Suicide Last Done: 09/07/24 17:17
*General Assessment Last Done: 09/07/24 17:17
*Neglect/Abuse Screening Last Done: 09/07/24 17:17
*ED COVID-19 Vaccine History Last Done: 09/07/24 17:17
*Nursing Disposition Last Done: 09/07/24 19:22
ED- Cardiac Assessment Last Done: 09/07/24 17:38
ED- Pulmonary Assessment Last Done: 09/07/24 17:38
Discharge Date and Time
Discharge Date/Time: 09/07/24 19:22
Print Language: NEPALI
[2024-09-07 17:29] VITALS: BP 186/89
[2024-09-07 18:00] VITALS: BP 162/94
[2024-09-07 19:00] VITALS: BP 175/84
[2024-09-07 19:15] LABS: NT-proBNP 33.9 pg/ml
== END 2024-09-07 19:22 | disposition home or self-care (01) ==
LOC: EMR 13:42
PROVIDERS: Emergency Medicine; EMERGENCY PHYSICIAN Emergency Medicine; FAMILY PHYSICIAN Family Medicine
DX: J90 Pleural effusion, not elsewhere classified (principal); C90.00 Multiple myeloma not having achieved remission; Z86.711 Personal history of pulmonary embolism; Z79.01 Long term (current) use of anticoagulants
CPT/HCPCS: 99284; 71046; 80053; 83880; 84484; 85025; 93005

== ENCOUNTER → 2024-09-10 09:32 | Outpatient (REF) | payer OTHER, SELFPAY | LOC: HWRAD 09:32 | PROVIDERS: ATTENDING PHYSICIAN Family Medicine | DX: J90 Pleural effusion, not elsewhere classified (principal) | CPT/HCPCS: 71250 ==

== ENCOUNTER → 2024-09-11 12:24 | Outpatient (REF) | payer OTHER, SELFPAY ==
[2024-09-11 12:52] VITALS: BP 142/76; BP_SYST 81
[2024-09-11 13:27] VITALS: BP 107/72; BP_SYST 64
[2024-09-11 14:48] LABS: Body Fluid LDH 655 U/L; Body Fluid Protein 4.2 g/dl
[2024-09-11 16:06] LABS: LDH 178 U/L (120-246); Total Protein 6.1 g/dl (6.3-8.2)
== END ==
LOC: RADI 12:24
PROVIDERS: ATTENDING PHYSICIAN Family Medicine
DX: J90 Pleural effusion, not elsewhere classified (principal)
CPT/HCPCS: 88305; 32555; 36415; 71045; 83615; 84155; 84157; 87015; 87070; 87205; 88112

== ENCOUNTER → 2024-11-23 07:54 | Outpatient (REF) | payer OTHER, SELFPAY | LOC: HWRCS 07:54 | PROVIDERS: ATTENDING PHYSICIAN Internal Medicine Cardiovascular Disease; FAMILY PHYSICIAN Physician Assistant Medical | DX: Z01.818 Encounter for other preprocedural examination (principal) | CPT/HCPCS: 78452; 93017; A9500; J2785 ==

== ENCOUNTER → 2024-11-25 09:28 | Outpatient (REF) | payer OTHER, SELFPAY | LOC: HWRCS 09:28 | PROVIDERS: ATTENDING PHYSICIAN Internal Medicine Cardiovascular Disease; FAMILY PHYSICIAN Physician Assistant Medical | DX: Z01.818 Encounter for other preprocedural examination (principal); I26.99 Other pulmonary embolism without acute cor pulmonale | CPT/HCPCS: 93306 ==

== ENCOUNTER → 2024-12-02 08:31 | Outpatient (REF) | payer OTHER, SELFPAY ==
[2024-12-02 08:57] VITALS: BP 141/88; BP_SYST 53
== END ==
LOC: RADI 08:31
PROVIDERS: ATTENDING PHYSICIAN Internal Medicine Endocrinology, Diabetes & Metabolism; FAMILY PHYSICIAN Family Medicine
DX: E04.1 Nontoxic single thyroid nodule (principal); C90.00 Multiple myeloma not having achieved remission
CPT/HCPCS: 88173; 10005

== ENCOUNTER → 2024-12-08 17:21 | Outpatient (REF) | payer OTHER, SELFPAY | LOC: RAD 17:21 | PROVIDERS: ATTENDING PHYSICIAN Internal Medicine Critical Care Medicine; FAMILY PHYSICIAN Family Medicine | DX: J90 Pleural effusion, not elsewhere classified (principal) | CPT/HCPCS: 71046 ==

== ENCOUNTER → 2024-12-15 09:40 | Outpatient (REF) | payer OTHER, SELFPAY | LOC: HWRAD 09:40 | PROVIDERS: ATTENDING PHYSICIAN Internal Medicine Critical Care Medicine; FAMILY PHYSICIAN Family Medicine | DX: R91.1 Solitary pulmonary nodule (principal) | CPT/HCPCS: 71250 ==